=== PATIENT | female | born 1995 | race Two or more races ===

== ENCOUNTER 2020-12-16 07:37 | Emergency (ER) | payer MEDICAID ==
[~2020-12-16] VITALS: Ht 170.2 cm; Wt 53.1 kg
[2020-12-16 08:02] VITALS: BP 127/78
[2020-12-16] MEDS ORDERED: KETOROLAC TROMETH 60MG/2ML VIAL IM ONE (08:15)
== END 2020-12-16 08:46 | disposition home or self-care (01) ==
LOC: ER 07:37
DX: M26.603 Bilateral temporomandibular joint disorder, unspecified (principal)
CPT/HCPCS: 96372; 99283; J1885